=== PATIENT | male | born 1995 | race African-American/Black ===

== ENCOUNTER 2020-11-27 17:42 | Emergency (ER) | payer OTHER, BC, SELFPAY ==
--- NOTE | ~2020-11-27 | XR_ITS ---
EXAMINATION: XR finger 1st RT min 2V DATE: 11/27/2020 17:52 INDICATION: Pain and bruising post smashing injury to the distal phalanx of the right thumb TECHNIQUE: Dorsal palmar, lateral and oblique views of the right thumb digit were obtained COMPARISON: None FINDINGS: Alignment is normal. No fracture. Joint spaces are normal. Soft tissues are unremarkable. IMPRESSION: 1. Negative right thumb radiographs. Reviewed, dictated and finalized at location A.
[2020-11-27 18:45] VITALS: BP 136/74; PULSE 58; RESP 18; TEMP 37.1; O2SAT 99
== END 2020-11-27 20:22 | disposition left against medical advice (07) ==
PROVIDERS: Emergency Provider Emergency Medicine
DX: S69.91XA Unspecified injury of right wrist, hand and finger(s), initial encounter (principal); Z53.21 Procedure and treatment not carried out due to patient leaving prior to being seen by health care provider; W23.0XXA Caught, crushed, jammed, or pinched between moving objects, initial encounter
CPT/HCPCS: 73140; 99199

== ENCOUNTER 2024-03-21 15:41 | Emergency (ER) | payer OTHER, SELFPAY ==
--- NOTE | 2024-03-21 15:44 | ED_ITS ---
HPI - URI/Sore Throat General Chief Complaint: Upper Respiratory Infection Stated Complaint: sore throat cough, BHATIA work note Time Seen by Provider: 03/21/24 15:44 Source: patient Mode of arrival: ambulatory Limitations: no limitations History of Present Illness HPI Narrative: Iggy is a 28-year-old male patient presenting to the clinic today with complaints of sore throat, cough, and headache x1 day. He reports his was seen yesterday and tested positive for strep. He denies any fevers, chills, body aches. MD elicited complaint: cough, sore throat and other (Headache) Related Data Allergies Allergy/AdvReac Type Severity Reaction Status Date / Time No Known Allergies Allergy Verified 03/21/24 15:51 Review of Systems Review of Systems: Pertinent positives per HPI. Patient denies any fever, chills, rash, visual changes, dizziness, shortness of breath, chest pain, palpitations, nausea, vomiting, diarrhea, constipation, abdominal pain, or any urinary issues. PMFSH Social History Social History Gender identity (if verbalized by the patient): Male Comments At the time of my signature, I reviewed and agree with the nursing past medical, surgical, social, and family history. There is no relevant family history pertinent to the patient complaint. Exam Narrative: General: Well-developed, well nourished, in no apparent distress Head: Normocephalic, atraumatic Eyes: Pupils equally round and reactive to light bilaterally, EOM intact, sclera and conjunctive clear, no discharge, lids normal Ears: TMs intact and clear, ear canals clear, no drainage, grossly hearing normal. Nose: Nares patent, no discharge, no inflammation, no sinus tenderness. Mouth: Oral pharynx red with bilateral tonsillar enlargement without lesions or masses, good dentition, MMM. Neck: Supple, trachea midline, no enlargement of anterior or posterior cervical nodes, no thyroid masses or goiter palpable. Cardio: Regular rate and rhythm, s1 and s2 normal, no murmur appreciated. Resp: Clear to auscultation bilaterally, no rhonchi, rales, wheezing or rubs Course Course Emergency Course: Portions of this record may have been created with voice recognition software. Level of Care: Express Care Visit Vital Signs Vital signs: Vital Signs Temperature 37.0 C 03/21/24 15:50 Pulse Rate 57 L 03/21/24 15:50 Respiratory Rate 12 03/21/24 15:50 Blood Pressure 126/75 03/21/24 15:50 Pulse Oximetry 99 03/21/24 15:50 Oxygen Delivery Room Air 03/21/24 15:50 Temperature 37.0 C 03/21/24 15:50 Pulse Rate 57 L 03/21/24 15:50 Respiratory Rate 12 03/21/24 15:50 Blood Pressure 126/75 03/21/24 15:50 Pulse Oximetry 99 03/21/24 15:50 Oxygen Delivery Room Air 03/21/24 15:50 Vital signs reviewed MDM - URI/Sore Throat MDM Narrative Medical decision making narrative: At the time of visit patient is resting comfortably on the exam table. Patient appears to be nontoxic. Labs: Strep test was performed and was negative in the clinic today. Plan: Patient has pharyngitis and direct strep exposure. Will place on amoxicillin. Supportive measures were discussed with the patient and they voiced understanding discharge instructions and agrees to treatment plan. Return precautions reviewed Differential Diagnosis Differential diagnosis: Likely upper respiratory infection, otitis media, sinusitis, viral infection, bronchitis, influenza, pharyngitis and other (COVID) Discharge Plan Discharge Clinical Impression: Exposure to group A Streptococcus Pharyngitis Qualifiers: Pharyngitis/tonsillitis etiology: unspecified etiology Qualified Code(s): J02.9 - Acute pharyngitis, unspecified Patient Disposition: Home, Self-Care Condition: Stable Instructions: Antibiotic Form, Pharyngitis (ED) Additional Instructions: Take prescription medications only as prescribed-amoxicillin Change your toothbrush in 24 hours after initiation of the antibiotics Increase fluids and stay well hydrated Tylenol/motrin for pain/fever Flonase and OTC antihistamines as directed Vicks vapor rub to open sinuses Sinus rinses for congestion Cepacol spray, cough drops, throat lozenges, warm tea with honey/lemon, gargle salt water to soothe throat BRAT diet for diarrhea Clear liquids x 24 hours then advance as tolerated for nausea/vomiting Go to the ED if you develop a worsening in your condition- high fever not controlled by Tylenol or Motrin, dehydration, weakness, lethargy, shortness of breath, or chest pain. Follow up with your PCP in 3-5 days if symptoms persist. Prescriptions: New amoxicillin 875 mg tablet 875 mg PO Q12H 10 Days Qty: 20 0RF Follow-up/Referrals: PHYSICIAN,DIRECT MARKETING ANALYST [Primary Care Provider] - Stand Alone Forms: Work/School Release IP Time of Disposition: 16:06 Quality NIHSS Nursing Documentation ED NIHSS nursing documentation: reviewed/agree
[2024-03-21 15:50] VITALS: BP 126/75; PULSE 57; RESP 12; TEMP 37; O2SAT 99
[2024-03-21 16:08] LABS: EDSTREPNEGPOS1 Negative (Negative)
== END 2024-03-21 16:11 | disposition home or self-care (01) ==
PROVIDERS: Emergency Provider Nurse Practitioner Family
DX: J02.9 Acute pharyngitis, unspecified (principal); Z20.818 Contact with and (suspected) exposure to other bacterial communicable diseases
CPT/HCPCS: 87081; 87880; 99213; G0463

== ENCOUNTER 2025-04-04 09:21 | Emergency (ER) | payer OTHER, SELFPAY ==
[2025-04-04 09:33] VITALS: BP 140/79; PULSE 81; RESP 16; TEMP 36.2; O2SAT 97
--- NOTE | 2025-04-04 09:57 | ED.URI ---
HPI - URI/Sore Throat General Chief Complaint: Upper Respiratory Infection Stated Complaint: Sinus Source: patient, RN notes reviewed and old records reviewed Mode of arrival: ambulatory Limitations: no limitations History of Present Illness HPI Narrative: 29-year-old male presents to [facility] with complaints of headache, body aches, cough and chills since Monday morning does not have any fever today. Patient reports that daughter is also ill with child testing positive for Influenza. Patient has been taking Ibuprofen and cold and flu medication. Patient has frequent harsh cough noted denies any shortness of breath. MD elicited complaint: cough and other ( headache body aches and chills) Onset (ago): day(s) (3) Severity: moderate Able to tolerate fluids by mouth: Yes Treatments prior to arrival: ibuprofen and other (cold and flu medication) Related Data Allergies Allergy/AdvReac Type Severity Reaction Status Date / Time No Known Allergies Allergy Verified 04/04/25 09:55 Review of Systems Review of Systems: CONSTITUTIONAL: reports malaise, chills, sweats, no known fever. EYES: Denies visual changes, redness, or discharge. ENT: Reports rhinorrhea, congestion, sinus pain, no otalgia and no sore throat. CARDIOVASCULAR: Denies chest pain, palpitations, or edema. RESPIRATORY: Reports cough.? Denies dyspnea. GASTROINTESTINAL: Denies abdominal pain, nausea, vomiting, diarrhea SKIN: Denies rash or itching. MUSCULOSKELETAL: reports myalgia. NEUROLOGIC: reports headache. All systems reviewed & are unremarkable except as noted in HPI and below PMFSH Social History Social History Smoking status: Current every day smoker Tobacco type: cigars Alcohol intake: current Alcohol use details: social Substance use type: does not use Living arrangements: with family Gender identity (if verbalized by the patient): Male Comments At time of signature, agree with nursing past medical, surgical, social and family history. There is no relevant family history pertinent to the presenting complaint Exam Narrative: GENERAL: ill-appearing, well-nourished, and in no acute distress. HEAD: Normocephalic EYES: PERRLA, conjunctivae clear ENT: Nares clear, turbinates edematous and erythematous, clear discharge. Mucous membranes moist. TM pearly obrien with dull light reflex bilaterally; no tragal tenderness. Oropharynx erythematous without lesions. Tonsils not enlarged and without exudate, no drooling, no hoarseness, no trismus, uvula midline.post nasal drainage noted, NECK: Supple. No lymphadenopathy CHEST: Clear to auscultation, breath sounds equal. No wheezing, rhonchi, rales, or stridor. No respiratory distress, speaks in full sentences.frequent harsh cough, SAO2 97% on room air HEART: Regular rate and rhythm. No murmur heard. SKIN: Warm, dry, no rash. NEURO: Alert and oriented x3. PSYCH: Normal mood and affect Course Course Level of Care: Express Care Visit Vital Signs Vital signs: Vital Signs Temperature 36.2 C L 04/04/25 09:33 Pulse Rate 81 04/04/25 09:33 Respiratory Rate 16 04/04/25 09:33 Blood Pressure 140/79 04/04/25 09:33 Pulse Oximetry 97 04/04/25 09:33 Oxygen Delivery Room Air 04/04/25 09:33 Temperature 36.2 C L 04/04/25 09:33 Pulse Rate 81 04/04/25 09:33 Respiratory Rate 16 04/04/25 09:33 Blood Pressure 140/79 04/04/25 09:33 Pulse Oximetry 97 04/04/25 09:33 Oxygen Delivery Room Air 04/04/25 09:33 reviewed [facility] Narrative Medical decision making narrative: Patient tested positive for Influenza A with patient appropriate for outpatient care and follow up. Anticipatory guidance and reasons to seek care in the ED reviewed with patient with understanding voiced. Differential Diagnosis Differential Diagnosis: Differential diagnostic considerations for upper respiratory infection include upper respiratory infection, croup, otitis media, sinusitis, viral infection, bronchitis, influenza, pharyngitis, strep, uvulitis.? Lab Data [facility] Lab Attestation statement: I personally reviewed the patient's lab results. Lab results narrative: Influenza A positive,Influenza B negative. Covid antigen negative Labs: Lab Results 04/04/25 Range/Units 09:59 POC Influenza A Ag Positive (Negative) POC Influenza B Ag Negative (Negative) POC SARS CoV-2 Ag Negative (Negative) reviewed Critical Care Time Critical Care Time Critical Care Time: No Discharge Plan Discharge Clinical Impression: Influenza A Patient Disposition: Home Condition: Stable Instructions: Influenza (ED), Acute Cough (ED) Additional Instructions: Increase fluids especially juices and water [id number] cough and cold medicine of your choice for your symptoms Tylenol or ibuprofen for any fever pain may alternate per package instructions Steroids as directed--take with food heat to the face 20-30 minutes 4-6 times a day for pain Salt water gargles, throat lozenges or throat sprays as desired you tested positive for influenza you must be fever free without use of Tylenol or ibuprofen for 24 hours before you to be around others If your symptoms persist, change or worsen significantly before you can contact your personal physician then please, without delay, go to the emergency department for further evaluation. Follow-up with PCP in 7-10 days or sooner if needed Follow up with PCP soon in regards to your blood pressure which is elevated above threshold for referral. Blood pressure above 120/80 may indicate pre-hypertension. 140/79 Patient Language: Mongolian Prescriptions: New prednisone 20 mg tablet 40 mg PO DAILY 5 Days Qty: 10 0RF Rx Instructions: taken a.m. with food Follow-up/Referrals: PHYSICIAN NOT ON STAFF,NONSTAFF [Primary Care Provider] Stand Alone Forms: Work/School Release IP Time of Disposition: 10:14 Quality [place] Coma Scale Eyes: Open Verbal: Oriented and Alert Motor: Follows Commands [place] Coma Total Score: 15
[2025-04-04 10:00] LABS: EDCOVIDSCREEN Negative (Negative); EDINFLUASCREEN Positive (Negative); EDINFLUBSCREEN Negative (Negative)
== END 2025-04-04 10:20 | disposition home or self-care (01) ==
PROVIDERS: Emergency Provider Registered Nurse
DX: J10.1 Influenza due to other identified influenza virus with other respiratory manifestations (principal); Z20.822 Contact with and (suspected) exposure to COVID-19; F17.290 Nicotine dependence, other tobacco product, uncomplicated
CPT/HCPCS: 87426; 87804; 99213; G0463